=== PATIENT | male | born 1980 | race Caucasian/White ===

== ENCOUNTER 2022-04-24 14:23 | Outpatient (CLI) | payer BC, SELFPAY ==
[2022-04-24 15:14] LABS: Hematocrit 44.1 % (42.0-52.0); Hemoglobin 15.4 g/dL (14.0-18.0); Mean Corpuscular HGB Conc 34.9 g/dl (32-36); Mean Corpuscular Hemoglobin 30.2 pg (26-34); Mean Corpuscular Volume 86.5 fl (80-100); Mean Platelet Volume 9.6 fl (7.4-10.4); Platelet Count Result 230 k/mm3 (150-375); Red Cell Distribution Width 11.9 % (11.5-14.5); White Blood Count 7.3 K/mm3 (4.5-10.0)
[2022-04-24 16:14] LABS: Alanine Aminotransferase 20 U/L (6-50); Albumin Level 4.7 g/dL (3.5-5.1); Alkaline Phosphatase 46 U/L (38-126); Anion Gap 11 mmol/L (8-16); Aspartate Amino Transferase 27 U/L (17-59); Bilirubin,Total 0.7 mg/dL (0.2-1.3); Blood Urea Nitrogen 13 mg/dL (9-20); Calcium 8.9 mg/dL (8.4-10.2); Carbon Dioxide 27 mmol/L (22-30); Chloride 101 mmol/L (98-107); Cholesterol 190 mg/dL (0-200); Estimated Glomerular Filt Rate > 60; Glucose 79 mg/dL (65-110); HDL Direct 41 mg/dL; Potassium 3.8 mmol/L (3.4-5.0); Sodium 139 mmol/L (137-145); Triglycerides 213 mg/dL (<150)
[2022-04-24 16:27] LABS: LDL Cholesterol Direct 114 mg/dL
[2022-04-24 16:49] LABS: Prostate Specific Antigen 2.1 ng/mL (< OR = 4.0)
[2022-04-26 16:17] LABS: Rapid Plasma Reagin Non-Reactive (NonReactive)
[2022-04-29 14:31] LABS: Testosterone Free 53.5 pg/mL (35.0-155.0); Testosterone Total 224 ng/dL (250-1100)
== END 2022-04-24 14:24 | disposition home or self-care (01) ==
LOC: ANHLAB 14:30
PROVIDERS: PCP Family Medicine; Visit Provider Nurse Practitioner Family
DX: R68.82 Decreased libido (principal); Z13.220 Encounter for screening for lipoid disorders; E78.5 Hyperlipidemia, unspecified; R53.83 Other fatigue; F41.9 Anxiety disorder, unspecified; Z12.5 Encounter for screening for malignant neoplasm of prostate; R36.1 Hematospermia
CPT/HCPCS: 36415; 80053; 80061; 84153; 84402; 84403; 84443; 85027; 86592; 87491; 87591; 87661; G0103

== ENCOUNTER → 2022-04-26 12:50 | Outpatient (CLI) | payer BC, SELFPAY ==
--- NOTE | ~2022-04-26 | US_ITS ---
EXAMINATION: US scrotum doppler DATE: 04/26/2022 13:28 INDICATION: R36.1 - Hematospermia . TECHNIQUE: Grayscale and Doppler ultrasound images of the testes were obtained. COMPARISON: None. FINDINGS: The right testis measures 4.5 x 2.2 x 3.0 cm. The left testis measures 3.9 x 2.3 x 2.3 cm. No testicular mass. There is normal vascular flow to both testes. The right epididymis is normal with normal vascular flow. The left epididymis is normal with normal vascular flow. No hydrocele. Bilater al varicoceles. IMPRESSION: Bilateral varicoceles. Reviewed, dictated and finalized at location [facility]. [employer] IMPRESSION: Bilateral varicoceles.
== END ==
PROVIDERS: PCP Family Medicine; Visit Provider Nurse Practitioner Family
DX: R36.1 Hematospermia (principal); I86.1 Scrotal varices
CPT/HCPCS: 76870; 93976

== ENCOUNTER 2023-05-22 09:09 | Outpatient (CLI) | payer BC, SELFPAY ==
--- NOTE | 2023-05-22 09:33 | EST_ITS ---
Patient Info Name: Roland Mahmood Age: 43 years : 1980 Gender: Male Ht: 66 in Wt: 210 lbs BSA: 2.14 m2 HR: 71 bpm BP: 125 / 79 mmHg Heart Rhythm: Sinus Rhythm Exam Date: 05/22/2023 9:48 AM Exam Location: [facility] Patient Status: Outpatient Admit Date: 05/22/2023 Staff Ordering Physician: Yudy Zuleta PAC Attending Provider: Yudy Zuleta PAC Exercise Technologist: Dyana Dunn CT Exercise Physician: Fredy Yarbrough DO Exam Type: CA stress test treadmill Study Info Indications R07.89 - Other chest pain A treadmill exercise stress test was performed. Summary 1. 1. Negative Husam exercise stress test for ischemic ST changes by ECG criteria. 2. 2. Good functional capacity, achieving 12 METs of workload. 3. 3. Appropriate HR response to exercise. 4. 4. Appropriate HR recovery at 1 minute post exercise. 5. 5. No imaging with stress testing. 6. 6. Patient informed of the above results. Protocol: Husam Stress ECG Details Stage: REST Duration (min): 1 min : 11 sec Speed (mph): 0.0 Grade (%): 0 HR (bpm): 70 SBP (mmHg): 125 DBP (mmHg): 79 METS: --- Stage: REST Duration (min): 9 min : 12 sec Speed (mph): 0.0 Grade (%): 0 HR (bpm): 75 SBP (mmHg): 125 DBP (mmHg): 79 METS: --- Stage: STAGE 1 Duration (min): 1 min : 0 sec Speed (mph): 1.7 Grade (%): 10 HR (bpm): 99 SBP (mmHg): 125 DBP (mmHg): 79 METS: --- Stage: STAGE 1 Duration (min): 2 min : 0 sec Speed (mph): 1.7 Grade (%): 10 HR (bpm): 102 SBP (mmHg): 125 DBP (mmHg): 79 METS: --- Stage: STAGE 1 Duration (min): 3 min : 0 sec Speed (mph): 1.7 Grade (%): 10 HR (bpm): 105 SBP (mmHg): 132 DBP (mmHg): 85 METS: --- Stage: STAGE 2 Duration (min): 1 min : 0 sec Speed (mph): 2.5 Grade (%): 12 HR (bpm): 114 SBP (mmHg): 132 DBP (mmHg): 85 METS: --- Stage: STAGE 2 Duration (min): 2 min : 0 sec Speed (mph): 2.5 Grade (%): 12 HR (bpm): 114 SBP (mmHg): 117 DBP (mmHg): 74 METS: --- Stage: STAGE 2 Duration (min): 3 min : 0 sec Speed (mph): 2.5 Grade (%): 12 HR (bpm): 118 SBP (mmHg): 135 DBP (mmHg): 77 METS: --- Stage: STAGE 3 Duration (min): 1 min : 0 sec Speed (mph): 3.4 Grade (%): 14 HR (bpm): 126 SBP (mmHg): 145 DBP (mmHg): 73 METS: --- Stage: STAGE 3 Duration (min): 2 min : 0 sec Speed (mph): 3.4 Grade (%): 14 HR (bpm): 128 SBP (mmHg): 145 DBP (mmHg): 73 METS: --- Stage: STAGE 3 Duration (min): 3 min : 0 sec Speed (mph): 3.4 Grade (%): 14 HR (bpm): 132 SBP (mmHg): 189 DBP (mmHg): 48 METS: --- Stage: STAGE 4 Duration (min): 1 min : 0 sec Speed (mph): 4.2 Grade (%): 16 HR (bpm): 149 SBP (mmHg): 189 DBP (mmHg): 48 METS: --- Stage: STAGE 4 Duration (min): 2 min : 0 sec Speed (mph): 4.2 Grade (%): 16 HR (bpm): 154 SBP (mmHg): 188 DBP (mmHg): 54 METS:
== END 2023-05-22 09:10 | disposition home or self-care (01) ==
LOC: ANHCARD 09:11
PROVIDERS: PCP Family Medicine; Visit Provider Physician Assistant Medical
DX: R07.9 Chest pain, unspecified (principal)
CPT/HCPCS: 93017